=== PATIENT | male | born 1965 | race Caucasian/White ===

== ENCOUNTER 2023-04-26 20:20 | Emergency (ER) | payer OTHER, SELFPAY ==
[2023-04-26 20:22] VITALS: BP 121/75; PULSE 81; RESP 18; TEMP 36.9; O2SAT 99; BMI 24.1
--- NOTE | 2023-04-26 20:39 | ED_ITS ---
HPI - General Adult General Chief complaint: Unspecified Complaint, Adult Stated complaint: Anal prolapse Time Seen by Provider: 04/26/23 20:21 Source: patient Mode of arrival: ambulatory Limitations: no limitations History of Present Illness HPI narrative: 57-year-old male presenting with rectal prolapse today. Patient states that this occurs frequently however he is always able to push it back in. This has been occurring for about 10 years he states. This is the 1st time the is not been able to push it back in. States that it has been prolapse for approximately 5 hours. Related Data Home Medications Medication Instructions Recorded Confirmed No Known Home Medications 04/26/23 04/26/23 Allergies Allergy/AdvReac Type Severity Reaction Status Date / Time No Known Drug Allergies Allergy Verified 04/20/22 15:10 Review of Systems Status of ROS: Reports: 6 or more systems reviewed and unremarkable except as noted in History and below [facility] Medical History Stye ?H00.019 - Hordeolum externum unspecified eye, unspecified eyelid (ICD-10) Social History Smoking Status: Never smoker Exam Narrative: Exam Narrative: Well-nourished well-developed patient, clearly uncomfortable. Alert and oriented. Answers questions appropriately. Mood and affect are appropriate. Thoughts are goal oriented and rational. No tangential or magical thinking noted. Patient speaks in full sentences without needing to catch his breath. HEENT: Normocephalic atraumatic. Pupils are equally round reactive to light. Extraocular muscles are intact. Conjunctivae are moist without any icterus noted. Moist mucous membranes. Rectal exam: Patient has a prolapsed rectum with significant edema. Const: Vital Signs, click to edit/add: Vital Signs - 24 hr 04/26/23 20:22 Temperature 98.5 F Pulse Rate [Pulse Oximeter] 81 Respiratory Rate 18 Blood Pressure [Ri ght Upper Arm] 121/75 Pulse Oximetry 99 Oxygen Delivery Me thod Room Air Course Course ED Course: Sugar was placed over the rectal prolapse and 15 minutes was elapsed. Prolapsed rectum was easily reduced with minimal pressure. Vital Signs Vital signs: Initial Vital Signs Temperature 98.5 F 04/26/23 20:22 Temperature Source Temporal Artery Scan 04/26/23 20:22 Pulse Rate 81 04/26/23 20:22 Respiratory Rate 18 04/26/23 20:22 Blood Pressure 121/75 04/26/23 20:22 Blood Pressure Mean 90 04/26/23 20:22 Blood Pressure Position Sitting 04/26/23 20:22 Pulse Oximetry 99 04/26/23 20:22 Oxygen Delivery Method Room Air 04/26/23 20:22 Vital Signs Temperature 98.5 F 04/26/23 20:22 Pulse Rate 81 04/26/23 20:22 Respiratory Rate 18 04/26/23 20:22 Blood Pressure 121/75 04/26/23 20:22 Pulse Oximetry 99 04/26/23 20:22 Oxygen Delivery Method Room Air 04/26/23 20:22 Temperature 98.5 F 04/26/23 20:22 Pulse Rate 81 04/26/23 20:22 Respiratory Rate 18 04/26/23 20:22 Blood Pressure 121/75 04/26/23 20:22 Pulse Oximetry 99 04/26/23 20:22 Oxygen Delivery Method Room Air 04/26/23 20:22 Medical Decision Making MDM Narrative Medical decision making narrative: 57-year-old male with recurrent rectal prolapse. Recommend colorectal surgery follow-up. We discussed stool softeners and increase fluid, decrease periods of sitting and avoid long periods of time sitting in the bathroom. Discharge Plan Discharge Clinical Impression: Rectal prolapse Patient Disposition: Home, Self-Care Condition: Improved Additional Instructions: Recommend you follow-up with the colorectal surgeon. In the meantime, avoid any heavy lifting, avoid sitting for long periods of time and avoid sitting in the bathroom on the toilet for long periods of time. Increase water intake and start a daily stool softener such as Colace (purchase [id number]). Prescriptions: No Action No Known Home Medications Follow Up/Referrals: Kya Jacob DO [Primary Care Provider] - Stand Alone Forms: [facility] Info Instructions
== END 2023-04-26 21:22 | disposition home or self-care (01) ==
PROVIDERS: Emergency Provider Family Medicine; PCP Family Medicine
DX: K62.3 Rectal prolapse (principal)
CPT/HCPCS: 99282; 99283; 99284